=== PATIENT | female | born 1955 | race African-American/Black ===

== ENCOUNTER → 2016-10-18 | Outpatient (CLI) | payer MEDICARE, MEDICAID ==
[~2016-10-18] MED LIST: ABILIFY20 MG PO; ABILIFY30 MG PO; ADVIL 200MG TA200 MG PO; AMOXICILLIN875 MG PO; ANUSOL-HC SUPPO25 MG RC; ATIVAN 1MG T1 MG/TAB PO; CLARITIN10 MG PO; CODEINE PO; DETROL PO; DIOVAN80 MG PO; FERROUS SU325 MG/TAB PO; FORTAMET1000 MG PO; FORTAMET500 MG PO; GLUCOPHAGE500 MG/TAB PO; GUAIFENESIN; LAMICTAL PO; LASIX 40MG TABL40 MG PO; LISINOPRIL PO; NASAL DECONGEST30 MG PO; NEXIUM40 MG PO; PAXIL 20MG20 MG PO; PAXIL40 MG PO; POTASSIUM CH2 MEQ/ML PO; PREMARIN .3MG0.3 MG PO; PRILOSEC 20MG20 MG PO; PROMETHAZINE PO; PULMICORT0.5 MG/21 IH; SELENIUM PO; SINGULAIR10 MG PO; SUDAFED 30M30 MG/TAB PO; UNABLE; VESICARE10 MG PO; ZINC PO; ZOFRAN ODT4 MG PO; ZOFRAN4 MG PO; ZYRTEC SYRUP1 MG/ML PO; [UNRECOGNIZED DRUG - OTHER]
== END ==
LOC: BHSO 09:11
DX: F33.42 Major depressive disorder, recurrent, in full remission (principal)

== ENCOUNTER → 2017-01-16 | Outpatient (CLI) | payer MEDICARE, MEDICAID | LOC: BHSO 09:58 | DX: F33.42 Major depressive disorder, recurrent, in full remission (principal) ==

== ENCOUNTER → 2017-05-14 | Outpatient (CLI) | payer MEDICARE, MEDICAID | LOC: MC.RAD 10:00 | DX: Z12.31 Encounter for screening mammogram for malignant neoplasm of breast (principal) ==

== ENCOUNTER → 2017-05-15 | Outpatient (CLI) | payer MEDICARE, MEDICAID | LOC: BHSO 09:59 | DX: F33.42 Major depressive disorder, recurrent, in full remission (principal) ==

== ENCOUNTER → 2017-10-31 | Outpatient (CLI) | payer MEDICARE, MEDICAID | LOC: BHSO 10:10 | DX: F33.41 Major depressive disorder, recurrent, in partial remission (principal) | CPT/HCPCS: G0463 ==

== ENCOUNTER → 2018-05-01 | Outpatient (CLI) | payer MEDICARE, MEDICAID | LOC: BHSO 09:51 | DX: F33.42 Major depressive disorder, recurrent, in full remission (principal) | CPT/HCPCS: G0463 ==

== ENCOUNTER → 2018-05-31 | Outpatient (CLI) | payer MEDICARE, MEDICAID | LOC: MC.RAD 12:55 | DX: N63.31 Unspecified lump in axillary tail of the right breast (principal); N63.32 Unspecified lump in axillary tail of the left breast | CPT/HCPCS: G0279 ==

== ENCOUNTER → 2018-06-10 | Outpatient (CLI) | payer MEDICARE, MEDICAID ==
[~2018-06-10] MED LIST changes: +ATIVAN 0.50.5 MG/TAB PO; +BENADRYL25 M2 PO; +CLARITIN 1010 MG/TAB PO; +COZAAR 50MG50 MG/TAB; +EFFEXOR XR75 MG/CAP PO; +EFFEXOR-XR150 MG PO; +FERROUSAL325 MG PO; +K-DUR20 MEQ PO; +LASIX 20MG TABL20 MG PO; +SINGULAIR 110 MG/TAB PO; +XALATAN EYE DROPS OU
== END ==
LOC: MC.RAD 09:00
DX: N60.01 Solitary cyst of right breast (principal)

== ENCOUNTER 2018-06-11 09:49 | Day surgery (SDC) | payer MEDICARE, MEDICAID ==
[2009-07-31 03:21] VITALS: BP 110/80
[~2018-06-11] VITALS: Ht 157.5 cm; Wt 68.2 kg
[~2018-06-11 09:49] MED LIST changes: -ATIVAN 0.50.5 MG/TAB PO; -BENADRYL25 M2 PO; -CLARITIN 1010 MG/TAB PO; -COZAAR 50MG50 MG/TAB; -EFFEXOR XR75 MG/CAP PO; -EFFEXOR-XR150 MG PO; -FERROUSAL325 MG PO; -K-DUR20 MEQ PO; -LASIX 20MG TABL20 MG PO; -SINGULAIR 110 MG/TAB PO; -XALATAN EYE DROPS OU
[2018-06-11 10:17] VITALS: BP 145/84; PULSE 81; TEMP 97.8
[2018-06-11] MEDS ORDERED: VESICARE10 MG PO (10:55)
[2018-06-11] MEDS ORDERED: LASIX 20MG TABL20 MG PO (10:56)
[2018-06-11] MEDS ORDERED: COZAAR 50MG50 MG/TAB (10:56)
[2018-06-11] MEDS ORDERED: FERROUSAL325 MG PO (10:57)
[2018-06-11] MEDS ORDERED: EFFEXOR-XR150 MG PO (10:58)
[2018-06-11] MEDS ORDERED: CLARITIN 1010 MG/TAB PO (10:58)
[2018-06-11] MEDS ORDERED: GLUCOPHAGE500 MG/TAB PO (10:59)
[2018-06-11] MEDS ORDERED: K-DUR20 MEQ PO (11:00)
[2018-06-11] MEDS ORDERED: EFFEXOR XR75 MG/CAP PO (11:01)
[2018-06-11] MEDS ORDERED: ABILIFY20 MG PO (11:02)
[2018-06-11] MEDS ORDERED: SINGULAIR 110 MG/TAB PO (11:02)
[2018-06-11] MEDS ORDERED: XALATAN EYE DROPS OU (11:03)
[2018-06-11] MEDS ORDERED: ATIVAN 0.50.5 MG/TAB PO (11:04)
[2018-06-11] MEDS ORDERED: BENADRYL25 M2 PO (11:05)
[2018-06-11 11:45] VITALS: BP 141/77; PULSE 81; TEMP 98.8
[2018-06-11 12:00] VITALS: BP 129/88; PULSE 95
[2018-06-11 12:15] VITALS: BP 123/76; PULSE 77
== END 2018-06-11 12:46 | disposition home or self-care (01) ==
LOC: SDCO 09:49
DX: Z12.11 Encounter for screening for malignant neoplasm of colon (principal); K63.5 Polyp of colon; K57.30 Diverticulosis of large intestine without perforation or abscess without bleeding; K64.0 First degree hemorrhoids; I10 Essential (primary) hypertension; F31.9 Bipolar disorder, unspecified; Z90.710 Acquired absence of both cervix and uterus; Z90.10 Acquired absence of unspecified breast and nipple; Z88.1 Allergy status to other antibiotic agents; Z88.6 Allergy status to analgesic agent; Z79.84 Long term (current) use of oral hypoglycemic drugs
CPT/HCPCS: J2250; J3010; J7042

== ENCOUNTER → 2018-10-30 | Outpatient (CLI) | payer MEDICARE, MEDICAID ==
[~2018-10-30] MED LIST changes: +ATIVAN 0.50.5 MG/TAB PO; +BENADRYL25 M2 PO; +CLARITIN 1010 MG/TAB PO; +COZAAR 50MG50 MG/TAB; +EFFEXOR XR75 MG/CAP PO; +EFFEXOR-XR150 MG PO; +FERROUSAL325 MG PO; +K-DUR20 MEQ PO; +LASIX 20MG TABL20 MG PO; +SINGULAIR 110 MG/TAB PO; +XALATAN EYE DROPS OU
== END ==
LOC: BHSO 10:12
DX: F33.42 Major depressive disorder, recurrent, in full remission (principal)
CPT/HCPCS: G0463

== ENCOUNTER → 2019-04-29 | Outpatient (CLI) | payer MEDICARE, MEDICAID | LOC: BHSO 10:01 | DX: F33.42 Major depressive disorder, recurrent, in full remission (principal) | CPT/HCPCS: G0463 ==

== ENCOUNTER → 2019-09-11 | Outpatient (CLI) | payer MEDICARE, MEDICAID | LOC: MC.RAD 13:15 | DX: Z12.31 Encounter for screening mammogram for malignant neoplasm of breast (principal) ==

== ENCOUNTER → 2019-12-19 | Outpatient (CLI) | payer MEDICARE, MEDICAID | LOC: BHSO 10:40 | DX: F41.1 Generalized anxiety disorder (principal) ==

== ENCOUNTER → 2020-02-10 | Outpatient (CLI) | payer MEDICARE, MEDICAID | LOC: BHSO 09:40 | DX: F41.1 Generalized anxiety disorder (principal) ==

== ENCOUNTER 2023-09-03 01:08 | Emergency (ER) | payer MEDICARE, MEDICAID ==
[~2023-09-03] VITALS: Ht 157.5 cm; Wt 63.6 kg
[2023-09-03 01:09] VITALS: TEMP 97.8
[2023-09-03] MEDS ORDERED: Acetaminophen 500 MG TAB PO ONE (01:15)
[2023-09-03] MEDS ORDERED: Naproxen 250 MG TAB PO ONE (01:30)
[2023-09-03] MEDS ORDERED: Home Ondansetron ODT 4 MG #2 ODT/PACK PO ONE ×2 (01:45→06:15)
[2023-09-03] MEDS ORDERED: LORazepam 2 MG/ML 1 ML VIAL IV ONE (02:15)
[2023-09-03 02:27] LABS: BASO # 0.1 K/mm3 (0.0-0.2); BASO % 0.8 % (0.0-2.0); EOS # 0.5 K/mm3 (0.0-0.7); EOS % 5.4 % (0.0-4.0); GRAN # 4.4 K/mm3 (1.4-6.5); GRAN % 52.5 % (42.2-75.2); HEMATOCRIT 42.4 % (37.0-47.0); HEMOGLOBIN 13.3 g/dl (12.5-16.0); LYMPH # 2.9 K/mm3 (1.2-3.4); LYMPH % 34.2 % (20.0-51.0); MEAN CELL VOLUME 97 fl (80.0-100.0); MEAN CORPUSCULAR HEMOGLOBIN 30 pg (27-31); MEAN CORPUSCULAR HGB CONC 31 g/dl (33.0-37.0); MEAN PLATELET VOLUME 9.3 fl (7.4-10.4); MONO # 0.6 K/mm3 (0.1-0.6); MONO % 6.7 % (1.7-9.3); PLATELET COUNT 264 K/mm3 (130-400); RED BLOOD COUNT 4.39 M/mm3 (4.10-5.30); REDCELL DISTRIBUTION WIDTH-CV 13.6 % (11.5-14.5)
[2023-09-03 02:53] LABS: ALANINE AMINOTRANSFERASE 27 U/L (0-55); ALBUMIN 4.1 gm/dL (3.4-4.8); ALKALINE PHOSPHATASE 102 U/L (40-150); ANION GAP 11 mmol/L (7-16); AST,SGOT 24 U/L (5-34); BILIRUBIN,TOTAL 0.3 mg/dL (0.2-1.2); BLOOD UREA NITROGEN 14 mg/dL (10-20); CALCIUM 9.7 mg/dL (8.4-10.2); CARBON DIOXIDE 25 mmol/L (23-31); CHLORIDE 104 mmol/L (98-107); GLUCOSE 82 mg/dL (70-99); POTASSIUM 4.5 mmol/L (3.5-4.5); SODIUM 140 mmol/L (136-145); TOTAL PROTEIN 7.6 gm/dL (6.2-8.1)
[2023-09-03 03:10] LABS: MAGNESIUM 2.1 mg/dL (1.6-2.6)
[2023-09-03] MEDS ORDERED: Pantoprazole 40 MG in NS 10 ML IV ONE (03:15)
[2023-09-03] MEDS ORDERED: Mag/Al Hydrox/Simeth Susp 30 ML CUP PO ONE (03:15)
[2023-09-03 03:28] LABS: C-REACTIVE PROTEIN 0.06 mg/dL (0.00-0.50)
[2023-09-03 03:30] LABS: THYROID STIMULATING HORMONE 1.233 uIU/mL (0.350-4.940); TROPONIN-I < 0.010 ng/mL (0.00-0.033)
[2023-09-03] MEDS ORDERED: Albuterol 90 MCG/PUFF 8 GM MDI IH ONE (03:45)
[2023-09-03 06:39] VITALS: BP 110/68; PULSE 75
== END 2023-09-03 06:44 | disposition home or self-care (01) ==
LOC: COL.ER 01:08
PROVIDERS: Emergency Medicine
DX: R04.0 Epistaxis (principal); R51.9 Headache, unspecified; R00.2 Palpitations; R07.89 Other chest pain; R11.0 Nausea
CPT/HCPCS: C9113; J2060